=== PATIENT | female | born 1975 | race Caucasian/White ===

== ENCOUNTER → 2016-12-18 | Outpatient (CLI) | payer BC ==
--- NOTE | 2016-12-18 13:09 | DI ---
EXAM: ABDOMEN ACUTE (INC. CHEST) LOCATION OF DICTATION: [facility] HISTORY: ITS.REASON: R10.9 ABD PAIN; R11.2 NAUSEA W/ VOMITI; K59.09 OTHER CONSTIPATION COMPARISON: No prior studies available for comparison. TECHNIQUE: FINDINGS: The heart size is normal. The lungs are clear. There are no consolidating opacities or pleural effusions. There is no pneumothorax. There is gas demonstrated throughout the normal caliber small and large bowel loops without evidence for bowel obstruction or free intraperitoneal air. No abnormal radiopacities overlying the abdomen. The osseous structures are normal. IMPRESSION: 1. Unremarkable bowel gas pattern. 2. The lung bases are clear. The heart size is normal. .
[2016-12-18 13:18] LABS: BASOPHILS % (AUTO) 0.2 % (0-2); EOSINOPHILS % (AUTO) 0.2 % (0-4); HCT - HEMATOCRIT 39.7 % (36-46); HGB - HEMOGLOBIN 13.2 GM/DL (12-16); IMMATURE GRANULOCYTE # (AUTO) 0.01 T/MM3 (0.00-0.03); IMMATURE GRANULOCYTE % (AUTO) 0.1 % (0.0-0.5); LYMPHOCYTES # (AUTO) 2.1 T/MM3 (1-4.8); LYMPHOCYTES % (AUTO) 21.5 % (23-45); MEAN CORPUSCULAR HGB 31.4 UUG (26-34); MEAN CORPUSCULAR HGB CONC(MCHC 33.2 GM/DL (31-37); MEAN CORPUSCULAR VOLUME 94.5 UM3 (80-100); MEAN PLATELET VOLUME 10.1 UM3 (9.4-12.4); MONOCYTES # (AUTO) 0.4 T/MM3 (0-0.8); MONOCYTES % (AUTO) 3.8 % (0-9.0); NEUTROPHILS #(AUTO)-ABSOLUTE 7.1 T/MM3 (1.8-7.7); NEUTROPHILS % (AUTO) 74.2 % (33-66); WBC - WHITE BLOOD COUNT 9.6 T/MM3 (4.5-11.0)
--- NOTE | 2016-12-18 13:21 | DI ---
EXAM: US GALLBLADDER LOCATION OF DICTATION: [facility] HISTORY: ITS.REASON: R10.9 ABD PAIN; R11.2 NAUSEA W/ VOMIT; K59.09 OTHER CONSTIPATION COMPARISON: No prior studies available for comparison. Multiple real-time grayscale sonographic images were obtained of the abdomen with and without color flow. FINDINGS: Multiple real-time grayscale sonographic images were obtained of the abdomen with and without color flow. Hepatic parenchyma is homogeneous without evidence for focal mass. 13.51 cm There is no evidence for cholelithiasis. Gallbladder wall is mildly thickened measuring 0.32 cm. The patient did not demonstrate a positive sonographic Cheung sign. Both the intra and extrahepatic biliary system are of normal caliber with the common duct measuring 0.5 cm in diameter. Visualized portions of the head and body of the pancreas are unremarkable. The right kidney is present without collecting system dilatation. The right kidney measures 9.7 x 3.7 x 5.0 cm. IMPRESSION: 1. Thickened gallbladder wall measuring 0.32 cm without cholelithiasis or positive sonographic Cheung sign. Hepatobiliary scan could be utilized to further evaluate if clinically indicated. .
[2016-12-18 13:27] LABS: ALBUMIN 4.4 G/DL (3.5-5.0); ALBUMIN/GLOBULIN RATIO 1.5 RATIO (1.1-2.2); ALKALINE PHOSPHATASE 87 U/L (38-126); ALT (SGPT) 32 U/L (9-52); ANION GAP 12 MEQ/L (5-15); AST (SGOT) 24 U/L (14-36); BUN/CREATININE RATIO 9 RATIO (6-26); CALCIUM 9.3 MG/DL (8.4-10.2); CHLORIDE 109 MEQ/L (98-107); CO2 - CARBON DIOXIDE 25 MEQ/L (22-30); CREATININE 0.9 MG/DL (0.7-1.2); GLOMERULAR FILTRATION RATE 68; GLUCOSE 89 MG/DL (65-110); POTASSIUM 3.8 MEQ/L (3.6-5); SODIUM 146 MEQ/L (134-144); TOTAL PROTEIN 7.4 G/DL (6.3-8.2)
[2016-12-18 13:59] LABS: LIPASE 123 U/L (23-300)
== END ==
LOC: IMA 12:10
PROVIDERS: ATTEND Internal Medicine
DX: K82.8 Other specified diseases of gallbladder (principal); K59.09 Other constipation; R10.9 Unspecified abdominal pain; R11.2 Nausea with vomiting, unspecified
CPT/HCPCS: 36415; 80053; 83690; 85025

== ENCOUNTER → 2016-12-20 | Outpatient (CLI) | payer BC ==
[~2016-12-20] MED LIST: SALINE FLUSH 10ml SYRINGE ONE; SINCALIDE 5 MCG/VIAL IJ ONE; SODIUM CHLORIDE (Bacteriostatic) 30ml VIAL ONE
--- NOTE | 2016-12-20 08:43 | DI ---
Indication: ITS.REASON: R10.9; R11.2 Nausea with vomiting, uns; K59.09 Other constipation PROCEDURE: NM HEPATOBIL/EF: Encounter: Initial Comparison: Gallbladder ultrasound dated December 18, 2016 six Technique: 6.5 mCi of Tc-99m mebrofenin was injected intravenously. At approximately 51 minutes following this administration, 1.2 mcg of Kinevac was administered intravenously. Anterior planar images were obtained and a time/activity curve was calculated. FINDINGS: Radiotracer uptake is seen homogenously within the liver. There is normal clearance of radiotracer from the blood pool. The common bile duct is visualized at approximately 6 minutes. The gallbladder is visualized by 10 minutes, and radiotracer is excreted into the small bowel. There is no evidence of radiotracer outside the biliary or gastrointestinal tract. The gallbladder ejection fraction is normal at 85%. IMPRESSION: 1. Gallbladder visualization excluding acute cholecystitis. 2. Normal gallbladder ejection fraction of 85%, excluding biliary dyskinesia. .
== END ==
LOC: IMA 06:57
PROVIDERS: ATTEND Internal Medicine
DX: R10.11 Right upper quadrant pain (principal); R11.2 Nausea with vomiting, unspecified; K59.09 Other constipation

== ENCOUNTER → 2017-01-22 | Outpatient (CLI) | payer BC ==
[~2017-01-22] MED LIST changes: +IOHEXOL 300 MG/ML 75ml INJECTION ONE; +NORMAL SALINE 100 ML ONE; -SINCALIDE 5 MCG/VIAL IJ ONE; -SODIUM CHLORIDE (Bacteriostatic) 30ml VIAL ONE
--- NOTE | 2017-01-22 13:18 | DI ---
Indication: ITS.REASON: K59.[address] ABD/PELVIS W/CONTRAST ONLY: Comparison: None Technique: Patient scanned from above the diaphragm to below the pubic symphysis after 75 cc Omni 300 intravenous contrast is used. Dose reduction imaging technologies utilized with reformatted sagittal and coronal image planes. Findings: Heart size is unremarkable. Lung bases showed no acute findings. No obvious rupture of either breast implant is identified. Liver, gallbladder and biliary tree are unremarkable. Pancreas and adrenal glands are unremarkable. Spleen is unremarkable. A small probable assess three spleen is seen just anterior to the spleen measuring less than 1.5 cm. Retroperitoneum is unremarkable. Both kidneys excrete the contrast in a similar pattern showing no definitive abnormality. Imaging into the pelvis shows unremarkable appearance of the large and small bowel. Bladder contour is unremarkable. No acute pelvic findings additionally are seen. Reformatted imaging shows no acute bony abnormality. The patient does show degenerative changes at L5-S1 with a slight anterior listhesis of S1 on L5. Impression: Patient fails to show acute endings at this time. Neither kidney small bowel show suggestion of obstruction or significant inflammatory change. No additional acute findings appreciated. .
== END ==
LOC: IMA 11:34
PROVIDERS: ATTEND Physician Assistant
DX: K59.00 Constipation, unspecified (principal)